=== PATIENT | female | born 1930 | race Caucasian/White ===

== ENCOUNTER 2017-04-24 17:07 | Emergency (ER) | payer MEDICARE, BC, OTHER ==
[2017-04-24 17:53] VITALS: BP 101/45
--- NOTE | 2017-04-24 21:31 | EDM.PDOC ---
ED HPI GENERAL MEDICAL PROBLEM - General Chief Complaint: Lower Extremity Injury/Pain Stated Complaint: HIP PAIN Time Seen by Provider: 04/24/17 18:25 Source of Information: Reports: Patient, Old Records History Limitations: Reports: No Limitations - History of Present Illness INITIAL COMMENTS - FREE TEXT/NARRATIVE: 86 year old female presents for evaluation and treatment of right hip pain. Reports the patient has been present over the last week and has been worsening. Reports Wednesday she could hardly walk due to the pain. She has been taking tramadol with little relief. She denies any falls or trauma to the right hip. Reports the pain is worse with bearing weight. Patient denies any urinary symptoms, numbness or tingling to the right leg. Patient is concerned she has a blood clot. 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 Reports her previous DVT felt similar to her pain this week. She is currently on eliquis for a.fib. Patient has a past medical history of lymphoma. She has declined further treatment at this point but is seeing oncology. Location: Reports: Pelvis (right hip), Lower Extremity, Right Right Groin Pain Score (Numeric/FACES): 10 - Related Data Allergies Allergy/AdvReac Type Severity Reaction Status Date / Time Sulfa (Sulfonamide Allergy Hives Verified 04/24/17 17:33 Antibiotics) sulfanilamide [Sulfanilamide] Allergy Hives Verified 11/05/16 14:03 umeclidinium Allergy Swelling Verified 11/05/16 14:03 [From Anoro Ellipta] vilanterol Allergy Swelling Verified 11/05/16 14:03 [From Anoro Ellipta] levofloxacin [From Levaquin] AdvReac Nausea and Verified 11/05/16 15:51 Vomiting simvastatin [From Zocor] AdvReac Muscle Verified 11/05/16 15:51 Aches Home Meds: Home Meds Albuterol Sulfate [Proair Respiclick] 90 mcg INH Q4HR PRN 04/17/16 [History] Carvedilol [Coreg] 3.125 mg PO BID 04/17/16 [History] Diltiazem [Cardizem CD] 180 mg PO DAILY 04/17/16 [History] Flaxseed Oil [Flax Oil] 1 tab PO DAILY 04/17/16 [History] Furosemide [Lasix] 1 tab PO TID 04/17/16 [History] Gluc Singh/Chondro Singh A/Vit C/Mn [Glucosamine 1,500 Complex Cp] 1 tab PO BID [History] Levothyroxine Sodium [Synthroid] 125 mcg PO DAILY 04/17/16 [History] Losartan [Cozaar] 25 mg PO DAILY 04/17/16 [History] Multivitamin [One Daily Multivitamin] 1 tab PO DAILY 04/17/16 [History] Omeprazole Magnesium [Prilosec Otc] 40 mg PO DAILY 04/17/16 [History] Pravastatin [Pravachol] 20 mg PO SUTUTHSA 04/17/16 [History] Clobetasol [Clobetasol Propionate 0.05%] 30 gm TOP BID 11/05/16 [History] Apixaban [Eliquis] 2.5 mg PO BID 04/24/17 [History] Hydrocodone/Acetaminophen [Purdon 5-325] 1 tab PO Q4H PRN #12 tablet 04/24/17 [Rx ] Pravastatin [Pravachol] 40 mg PO MOWEFR 04/24/17 [History] Past Medical History HEENT History: Reports: Cataract, Impaired Vision Other HEENT History: wears eyeglasses. Cardiovascular History: Reports: Afib, Heart Failure, Pacemaker Respiratory History: Reports: Asthma, COPD, Pneumonia, Recurrent Other Respiratory History: emphysema Genitourinary History: Reports: Renal Calculus [employer] History: Reports: Musculoskeletal History: Reports: Fracture Other Musculoskeletal History: arhtiritis; fractured ankles with cast Endocrine/Metabolic History: Reports: Hypothyroidism Hematologic History: Reports: Anemia, Iron Deficiency Immunologic History: Reports: Immunosuppression Oncologic (Cancer) History: Reports: Lymphoma - Infectious Disease History Infectious Disease History: Reports: Chicken Pox, Measles - Past Surgical History HEENT Surgical History: Reports: Cataract Surgery GI Surgical History: Reports: Appendectomy, Hernia, Inguinal Musculoskeletal Surgical History: Reports: Knee Replacement Social & Family History - Family History Family Medical History: Noncontributory - Tobacco Use Smoking Status *Q: Former Smoker Years of Tobacco use: 1 Packs/Tins Daily: 1 Used Tobacco, but Quit: No Month Tobacco Last Used: 25 yr - Caffeine Use Caffeine Use: Reports: None Other Caffeine Use: pt reports that she drinks decaff coffee in the am - Recreational Drug Use Recreational Drug Use: No Review of Systems - Review of Systems Review Of Systems: See Below Constitutional: Denies: Fever Genitourinary: Reports: No Symptoms. Denies: Dysuria Skin: Reports: Lumps (inginal lymphadenopathy; hx of lymphoma) Neurological: Reports: Difficulty Walking (right hip pain). Denies: Numbness, Tingling ED EXAM, GENERAL - Physical Exam Exam: See Below Exam Limited By: No Limitations General Appearance: Alert, WD/WN, No Apparent Distress Respiratory/Chest: No Respiratory Distress, Lungs Clear, Normal Breath Sounds Cardiovascular: Irregularly Irregular Peripheral Pulses: 1+: Posterior Tibial (L), Posterior Tibial (R), Dorsalis Pedis (L), Dorsalis Pedis (R) Extremities: Normal Inspection, Normal Capillary Refill, Other (pain with internal and external rotation of the right hip) Neurological: Alert, Oriented, Normal Cognition Psychiatric: Normal Affect, Normal Mood Skin Exam: Warm, Dry, Normal Color Lymphatic: Adenopathy (right groin) Course - Vital Signs Last Recorded V/S: Last Vital Signs Temp 36.7 C 04/24/17 17:30 Pulse 78 04/24/17 17:30 Resp 18 04/24/17 17:30 BP 101/45 L 04/24/17 17:30 Pulse Ox 95 04/24/17 17:30 - Radiology Interpretation Free Text/Narrative:: xray of the right hip and pelvis shows severe degenerative changes. No change from November 2016 xray. No acute fracture appreciated. Right loer extremity ultrasound impression per [facility]: 1. No evidence of DVT 2. Bilateral inguinal lymphadenopathy. - Re-Assessments/Exams Free Text/Narrative Re-Assessment/Exam: 04/24/17 21:25 I reviewed the xray and ultrasound results with the patient. 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 Will discharge home with close follow-up with PCP and ortho. Discharge instructions as documented. Departure - Departure Time of Disposition: 21:26 Disposition: Home, Self-Care 01 Condition: Fair Clinical Impression: Hip pain, right, Arthritis - Discharge Information Prescriptions: Hydrocodone/Acetaminophen [Purdon 5-325] 1 tab PO Q4H PRN #12 tablet PRN Reason: Pain Instructions: Hip Pain Referrals: Apollo Curtis MD [Primary Care Provider] - Forms: ED Department Discharge Additional Instructions: Follow-up with your primary care provider this week as planned. Continue with the tramadol. For pain not relieved by tramadol , you may take 1/ 2 to1 hydrocodone every 4-6 hours as needed for severe pain. Do not drive or operate machinery within 12 hours of taking the Purdon. Purdon can be habit- forming, I recommend you take as few as needed to control your pain. Use ice or moist heat to the sore areas or a topical products such as Icyhot or BenGay for additional pain relief. Follow-up with orthopedics for a another steroid injection. Please return to the ER if your symptoms change or worsen.
--- NOTE | 2017-04-26 14:37 | CR ---
Pelvis and right hip: AP view of the pelvis was obtained as well as AP and lateral views of the right hip. Comparison: Previous pelvis and right hip study of 12/08/16. Severe joint space narrowing is seen within both hips, worse on the left side. Osteophytes are noted off the left femoral head. Bony structures are osteopenic. Sacroiliac joints are within normal limits. Vascular calcification is seen. No acute fracture or other bony abnormality is seen. Impression: 1. 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 Findings worse on the left side. 2. Other incidental findings. Nothing acute is appreciated on AP pelvis or on two-view right hip study. No significant change is seen from previous exam. Diagnostic code #2
--- NOTE | 2017-04-26 14:37 | US ---
Right lower extremity deep venous ultrasound: Duplex and color flow imaging was obtained of the right common femoral, proximal greater saphenous, superficial femoral, popliteal, posterior tibial and peroneal veins. Left common femoral vein was also evaluated. Comparison: Previous right lower extremity venous ultrasound of 12/08/16. Lymph nodes are seen within both inguinal regions. Largest measures up to 5.4 cm. These are identified on prior study of 12/08/16 and appear to be somewhat increased in size but are otherwise nonspecific. Normal phasic flow, augmentation and compression are seen. Impression: 1. Enlarged inguinal lymph nodes on both sides more prominent than on prior exam. Please correlate if patient has any known clinical etiology. 2. No findings of deep venous thrombosis are seen within the right lower extremity or within the left common femoral vein. Previous incomplete clot within the superficial femoral vein on the right side seen on prior study is no longer identified. Diagnostic code #3 I agree with preliminary report issued by [facility] ([facility] preliminary report dictated on 04/24/17, 9:53 PM Central Time)
== END 2017-04-24 21:40 | disposition home or self-care (01) ==
LOC: JD.ED 17:07
DX: M16.11 Unilateral primary osteoarthritis, right hip (principal); H54.7 Unspecified visual loss; J44.9 Chronic obstructive pulmonary disease, unspecified; J45.909 Unspecified asthma, uncomplicated; I48.91 Unspecified atrial fibrillation; I50.9 Heart failure, unspecified; E03.9 Hypothyroidism, unspecified; Z98.49 Cataract extraction status, unspecified eye; Z90.49 Acquired absence of other specified parts of digestive tract; Z95.0 Presence of cardiac pacemaker; Z96.653 Presence of artificial knee joint, bilateral; Z87.891 Personal history of nicotine dependence; Z88.2 Allergy status to sulfonamides; Z79.899 Other long term (current) drug therapy; Z87.01 Personal history of pneumonia (recurrent); Z86.2 Personal history of diseases of the blood and blood-forming organs and certain disorders involving the immune mechanism
CPT/HCPCS: 73502-26-RT; 73502-RT; 93971-26-RT; 93971-RT; 99283; 99284-25